=== PATIENT | male | born 1945 | race Caucasian/White ===

== ENCOUNTER → 2016-08-31 | Outpatient (CLI) | payer MEDICARE, BC | END | disposition home or self-care (01) | LOC: CFH 06:55 | PROVIDERS: ATTEND Internal Medicine Cardiovascular Disease | DX: I48.0 Paroxysmal atrial fibrillation (principal); I34.8 Other nonrheumatic mitral valve disorders; I07.1 Rheumatic tricuspid insufficiency; I37.1 Nonrheumatic pulmonary valve insufficiency; I34.0 Nonrheumatic mitral (valve) insufficiency | CPT/HCPCS: 93306 ==

== ENCOUNTER 2017-03-28 14:49 | Inpatient (IN) | payer MEDICARE, BC ==
[~2017-03-28] VITALS: Ht 193 cm; Wt 94.5 kg
[2017-03-28] MEDS ORDERED: SODIUM CHLORIDE 0.9% 1,000ML IVBOLUS ONE (15:00)
[2017-03-28] MEDS ORDERED: DILTIAZEM 5 MG/ML, 5ML IVPush ONE (15:00)
[2017-03-28] MEDS ORDERED: SODIUM CHLORIDE FLUSH 10ML SYR IVF ONE (15:00)
[2017-03-28] MEDS ORDERED: DILTIAZEM 5 MG/ML, 5ML ONE (15:01)
[2017-03-28] MEDS ORDERED: PROPOFOL 10 MG/ML, 20ML ONE (15:07)
[2017-03-28 15:19] LABS: HEMATOCRIT 49.5 % (39.2-51.8); HEMOGLOBIN 16.9 g/dL (13.7-18.0); WHITE BLOOD COUNT 9.1 x10^3/uL (3.4-10)
[2017-03-28 15:27] LABS: BLOOD UREA NITROGEN 15 mg/dL (7-18)
[2017-03-28] MEDS ORDERED: PLEASE ENTER HEIGHT AND WEIGHT AND ALLERGIES MC SCH (15:30)
[2017-03-28] MEDS ORDERED: PROPOFOL 10 MG/ML, 20ML IVPush ONE (15:30)
[2017-03-28] MEDS ORDERED: VIT1TABL32 PO (15:54)
[2017-03-28] MEDS ORDERED: SIMV20TA3 PO (15:54)
[2017-03-28] MEDS ORDERED: SILD100T PO (15:54)
[2017-03-28] MEDS ORDERED: HYDR-3237 PO (15:54)
[2017-03-28] MEDS ORDERED: METO25TA2 PO (15:54)
[2017-03-28] MEDS ORDERED: RIVA20TA PO (15:54)
[2017-03-28] MEDS ORDERED: NAPR1TAB25 PO (15:54)
[2017-03-28] MEDS ORDERED: DILTIAZEM 125 MG in SODIUM CHLORIDE 0.9% 100 ML IV PRN ×2 (16:00→19:30)
[2017-03-28 16:13] LABS: IS PT STATUS REG ER OR PRE ER? YES
[2017-03-28 18:10] VITALS: BP 121/75
[2017-03-28] MEDS ORDERED: DOCUSATE 100 MG CAPSULE PO PRN (19:00)
[2017-03-28] MEDS ORDERED: POLYETHYLENE GLYCOL 17 GM PACKET PO PRN (19:00)
[2017-03-28] MEDS ORDERED: morphine SULFATE 10 MG/ML, 1ML IVPush PRN (19:00)
[2017-03-28] MEDS ORDERED: ACETAMINOPHEN 325 MG TABLET PO PRN (19:00)
[2017-03-28] MEDS ORDERED: BISACODYL 10 MG SUPP PR PRN (19:00)
[2017-03-28 19:08] VITALS: BP 121/75
[2017-03-28 20:30] VITALS: BP 121/75
[2017-03-28 20:54] LABS: IS PT STATUS REG ER OR PRE ER? NO
[2017-03-28] MEDS ORDERED: SIMVASTATIN 20 MG TABLET PO SCH (21:00)
[2017-03-28] MEDS ORDERED: RIVAROXABAN 20 MG TABLET PO SCH (21:00)
[2017-03-28 23:25] VITALS: BP 121/75
[2017-03-29 01:23] LABS: IS PT STATUS REG ER OR PRE ER? NO
[2017-03-29 02:25] VITALS: BP 129/86
[2017-03-29 06:31] LABS: HEMATOCRIT 52.2 % (39.2-51.8); HEMOGLOBIN 17.6 g/dL (13.7-18.0); WHITE BLOOD COUNT 11.5 x10^3/uL (3.4-10)
[2017-03-29 06:39] LABS: BLOOD UREA NITROGEN 11 mg/dL (7-18)
[2017-03-29 06:53] LABS: ASPARTATE AMINO TRANSFERASE 26 U/L (15-37)
[2017-03-29] MEDS ORDERED: SODIUM PHOSPHATE 20 MMOL in SODIUM CHLORIDE 0.9% 500 ML IV ONE (08:30)
[2017-03-29 09:38] VITALS: BP 112/75
[2017-03-29 14:33] VITALS: BP 104/53
== END 2017-03-29 16:51 | disposition home or self-care (01) | DRG 309 ==
LOC: CACL 16:23 → EDIP 16:24 → CACL 16:50 → 5SO 17:41
PROVIDERS: ADMIT Hospitalist; ATTEND Hospitalist
PROC: 5A2204Z Restoration of Cardiac Rhythm, Single (ICD-10-PCS; principal; 2017-03-28)
DX: I48.0 Paroxysmal atrial fibrillation (principal); D68.69 Other thrombophilia; E78.5 Hyperlipidemia, unspecified; N40.0 Benign prostatic hyperplasia without lower urinary tract symptoms; Z66 Do not resuscitate; Z87.891 Personal history of nicotine dependence
CPT/HCPCS: 36415; 80048; 80053; 81003; 82040; 83735; 84100; 84443; 84484; 85025; 93005; 96374; J7030; J7040

== ENCOUNTER → 2017-04-20 | Outpatient (CLI) | payer MEDICARE, BC ==
[~2017-04-20] MED LIST: HYDR-3237 PO; METO25TA2 PO; NAPR1TAB25 PO; REGADENOSON 0.4 MG/5 ML SYRINGE ONE; RIVA20TA PO; SILD100T PO; SIMV20TA3 PO; VIT1TABL32 PO
== END | disposition home or self-care (01) ==
LOC: CFH 07:22
PROVIDERS: ATTEND Internal Medicine Cardiovascular Disease
DX: I48.0 Paroxysmal atrial fibrillation (principal)
CPT/HCPCS: 78452; 93017; A9502; J2785

== ENCOUNTER 2017-05-05 06:27 | Observation (INO) | payer MEDICARE, BC ==
[2017-05-04 10:41] LABS: BASOPHILS # (AUTO) 0.04 x10^3/uL (0-0.1); BASOPHILS % (AUTO) 0 % (0-1); EOSINOPHILS # (AUTO) 0.27 x10^3/uL (0-0.4); EOSINOPHILS % (AUTO) 3 % (1-7); LYMPHOCYTES # (AUTO) 1.32 x10^3/uL (1-3.4); LYMPHOCYTES % (AUTO) 14 % (22-44); MD NO; MEAN CORPUSCULAR HEMOGLOBIN 33.1 pg (27.5-34.5); MEAN CORPUSCULAR HGB CONC 34.2 g/dL (33.2-36.2); MEAN CORPUSCULAR VOLUME 96.7 fL (81-97); MEAN PLATELET VOLUME 9.2 fL (7.4-10.4); MONOCYTES % (AUTO) 8 % (2-9); NEUTROPHILS # (AUTO) 7.19 x10^3/uL (1.8-6.8); NEUTROPHILS % (AUTO) 75 % (42-75); PLATELET COUNT 253 x10^3/uL (130-400); RED BLOOD COUNT 5.09 x10^6/uL (4.38-5.82); RED CELL DISTRIBUTION WIDTH 12.9 % (9.4-14.8)
[2017-05-04 10:52] LABS: ALANINE AMINOTRANSFERASE 58 U/L (12-78); ANION GAP 7 mmol/L (5-15); CALCIUM 8.9 mg/dL (8.5-10.1); CHLORIDE 106 mmol/L (98-107); CREATININE 1.05 mg/dL (0.7-1.3)
[2017-05-04 10:53] LABS: ALKALINE PHOSPHATASE 83 U/L (45-117); BILIRUBIN,TOTAL 0.6 mg/dL (0.2-1.0); TOTAL PROTEIN 7.8 g/dL (6.4-8.2)
[~2017-05-05] VITALS: Ht 193 cm; Wt 94.0 kg
[~2017-05-05 06:27] MED LIST changes: +APIX5TAB PO; +MULT-658 PO; -REGADENOSON 0.4 MG/5 ML SYRINGE ONE
[2017-05-05] MEDS ORDERED: CEFAZOLIN PMX 1GM/50ML 50 ML IVPB ONE (07:00)
[2017-05-05] MEDS ORDERED: CEFAZOLIN 1,000 MG ONE (07:56)
[2017-05-05] MEDS ORDERED: CEFAZOLIN PMX 1GM/50ML 50 ML ONE (07:56)
[2017-05-05] MEDS ORDERED: LIDOCAINE 2%, 20ML ONE (07:56)
[2017-05-05] MEDS ORDERED: FENTANYL PF 100 MCG/2ML ONE ×2 (07:56→08:27)
[2017-05-05] MEDS ORDERED: MIDAZOLAM 1 MG/ML, 5ML ONE (07:56)
[2017-05-05 09:30] VITALS: BP 97/62
[2017-05-05] MEDS ORDERED: ZOLPIDEM 5MG TABLET PO PRN (09:30)
[2017-05-05] MEDS ORDERED: POTASSIUM CHLORIDE 20 MEQ TAB.ER.PRT PO ONE (09:30)
[2017-05-05] MEDS ORDERED: NAPROXEN NA DIPHENHYDRAMIN HCL PO PRN (09:30)
[2017-05-05] MEDS ORDERED: ACETAMINOPHEN 325 MG TABLET PO PRN (09:30)
[2017-05-05] MEDS ORDERED: ONDANSETRON 2MG/ML, 2ML IV PRN (09:30)
[2017-05-05] MEDS ORDERED: BISACODYL 5 MG EC TABLET PO PRN (09:30)
[2017-05-05] MEDS ORDERED: CEFAZOLIN PMX 1GM/50ML 50 ML IVPB SCH ×2 (09:30→17:00)
[2017-05-05 10:00] VITALS: BP 97/58
[2017-05-05] MEDS: SODIUM CHLORIDE 0.9% 1,000 ML IV SCH ×3 (10:02→22:36)
[2017-05-05 11:30] VITALS: BP 91/58
[2017-05-05 12:19] VITALS: BP 91/60
[2017-05-05] MEDS: CEFAZOLIN PMX 1GM/50ML 50 ML IV SCH (18:14)
[2017-05-05 18:32] VITALS: BP 103/80
[2017-05-05] MEDS ORDERED: SIMVASTATIN 20 MG TABLET PO SCH (21:00)
[2017-05-05] MEDS: SODIUM CHLORIDE FLUSH 10ML SYR IVF SCH (21:29)
[2017-05-06 00:42] VITALS: BP 130/79
[2017-05-06] MEDS: CEFAZOLIN PMX 1GM/50ML 50 ML IV SCH (02:25)
[2017-05-06] MEDS: SODIUM CHLORIDE 0.9% 1,000 ML IV SCH (05:10)
[2017-05-06 08:04] VITALS: BP 112/76
[2017-05-06] MEDS: SODIUM CHLORIDE FLUSH 10ML SYR IVF SCH (08:18)
[2017-05-06] MEDS ORDERED: METOPROLOL SUCCINATE 25 MG TAB.ER.24H PO SCH (09:00)
[2017-05-06] MEDS ORDERED: MULTIVITAMIN 1 TABLET PO SCH (09:00)
== END 2017-05-06 10:40 | disposition home or self-care (01) ==
LOC: CACL 06:27 → 5SO 09:01
PROVIDERS: ADMIT Internal Medicine Cardiovascular Disease; ATTEND Internal Medicine Cardiovascular Disease
DX: I49.5 Sick sinus syndrome (principal); I48.0 Paroxysmal atrial fibrillation; E78.2 Mixed hyperlipidemia
CPT/HCPCS: 33208; 36415; 71010; 71020; 80053; 85025; 93005; 96365; 96375; 99156; 99157; C1779; C1785; C1892; G0378; J0690; J2250; J3010; J3490; J7030